=== PATIENT | male | born 1990 | race Caucasian/White ===

== ENCOUNTER 2018-02-21 07:17 | Emergency (ER) | payer SELFPAY ==
--- NOTE | 2018-02-21 07:41 | ER Report ---
History and Physical Time Seen By MD: 07:29 HPI/ROS CHIEF COMPLAINT: Found down, unresponsive HISTORY OF PRESENT ILLNESS: Patient is a 27-year-old male brought into the emergency department after being found down at the [facility] in the [facility]. Unknown down time. Approximately 3 rounds of CPR were performed by EMS with epi nephrine and one defibrillation due to apparent V. fib rhythm with subsequent 10 minutes of asystolic rhythm on the monitor per EMS. Patient arrived with pupils fixed and dilated asystolic. CPR was in progress at time of arrival via Vernon device. Patient had received 1 amp of D50 prior to arrival without response. A dose of Narcan was administered without response. Patient arrived intubated with a 7-0 endotracheal tube. Capnography was 7 at time of arrival. REVIEW OF SYSTEMS: Unable to obtain due to patient's unresponsive status Home Meds Unable to Obtain Active Prescriptions or Reported Meds Past Medical/Surgical History Unknown Physical Exam General Appearance: Unresponsive, CPR in process Eyes: Pupils fixed and dilated, non reactive ENT, Mouth: ETT in place Respiratory: Intubated, auscultation of lung sounds b/l on bag valve ventilation Cardiovascular: Asystolic on monitor, no palpaple pulses present Gastrointestinal: Abdomen is soft, non rigid, non distended Neurological: Unresponsive, pupils non reactive Skin: Mottled and cool to touch Musculoskeletal: Supple, no obvious deformity Extremities rigid DIFFERENTIAL DIAGNOSIS: After history and physical exam differential diagnosis was considered for cardiac event, overdose, hypoglycemia, shock state, stroke, trauma Medical Decision Making ED Course/Re-evaluation ED Course Patient is a 27-year-old male brought into the emergency department after being found down for unknown period of time at the [facility] in the [facility]. Patient reportedly received 3 rounds of CPR prior to arrival with epinephrine administration and each subsequent round and 1 defibrillation per EMS after a reported V. fib on the monitor. Patient was asystolic for approximately 10 minutes prior to arrival with no responsiveness. Patient received an amp of D50 prior to arrival with no response. He received Narcan at time of arrival. At time of arrival, patient was noted be asystolic on the monitor with pupils fixed and dilated. Patient had noted extremity rigidity and skin mottling. Patient received a subsequent round of CPR with Vernon device in place and another administration of epinephrine. 2nd rhythm check revealed asystole on the monitor. Ultrasound at bedside was utilized to visualize patient's cardiac activity at which time there was no noted cardiac motion or movement. Further resuscitation was deemed futile at this time as the patient had significant downtime, asystole on the monitor, no cardiac activity, muscle rigidity, skin mottling. Patient was determined to be at 0727 am. Decision to Disposition Date: Feb 21, 2018 Decision to Disposition Time: 07:40 Depart Departure Impression: Primary Impression: Cardiac arrest Condition: Disposition: New Scripts Unable to Obtain Active Prescriptions or Reported Meds JOSEF MINOR DO Feb 21, 2018 07:41
== END 2018-02-21 07:27 | disposition expired ==
LOC: EDBD 07:21 → ER 07:21
DX: I46.9 Cardiac arrest, cause unspecified (principal)
CPT/HCPCS: 92950; 99285

== ENCOUNTER → 2018-02-21 | Outpatient (CLI) | payer SELFPAY | LOC: AMB 06:58 | PROVIDERS: ATTEND Nurse Practitioner | DX: I46.9 Cardiac arrest, cause unspecified (principal); E16.2 Hypoglycemia, unspecified; R40.20 Unspecified coma | CPT/HCPCS: A0425; A0433 ==